=== PATIENT | female | born 1995 | race Caucasian/White ===

== ENCOUNTER 2024-05-05 08:21 | Outpatient (REF) | payer BC, SELFPAY | END 2024-05-05 08:22 | disposition home or self-care (01) | LOC: HO.SH 08:21 | PROVIDERS: Visit Provider Physician Assistant | DX: Z46.1 Encounter for fitting and adjustment of hearing aid (principal); H90.3 Sensorineural hearing loss, bilateral | CPT/HCPCS: 92557; 92567 ==